=== PATIENT | female | born 1985 ===

== ENCOUNTER 2017-05-05 12:25 | Emergency (ER) | payer SELFPAY ==
[2017-05-05 12:47] VITALS: BP 116/73
--- NOTE | 2017-05-05 13:03 | UC ---
Abdominal Pain Female HPI - HPI Summary HPI Summary: couple days of nausea, vomiting, no fever or diarrhea, menses is late - History of Current Complaint Chief Complaint: UCGeneralIllness Stated Complaint: VOMITTING Time Seen by Provider: 05/05/17 12:45 Hx Obtained From: Patient Hx Last Menstrual Period: 04/07/17 ?: No Onset/Duration: Sudden Onset, Lasting Days - 3-4 days, Still Present Severity Initially: Moderate Severity Currently: None Location: Diffuse Radiates: No Character: Cramping Aggravating Factor(s): Food Alleviating Factor(s): Nothing Associated Signs and Symptoms: Positive: Nausea, Vomiting Allergies/Adverse Reactions: Allergies Allergy/AdvReac Type Severity Reaction Status Date / Time No Known Allergies Allergy Verified 05/05/17 12:47 Home Medications: Home Medications NK [No Home Medications Reported] 05/05/17 [History Confirmed 05/05/17] PMH/Surg Hx/FS Hx/Imm Hx Previously Healthy: Yes - Surgical History Surgical History: Yes Surgery Procedure, Year, and Place: Tonsilectomy - Family History Known Family History: Positive: None Family History: no cardiovascular issues in family lineage - Social History Occupation: Employed Full-time Lives: With Family Alcohol Use: Rare Substance Use Type: None Smoking Status (MU): Never Smoked Tobacco Review of Systems Constitutional: Negative Skin: Negative Eyes: Negative ENT: Negative Respiratory: Negative Cardiovascular: Negative Gastrointestinal: Negative, Abdominal Pain, Vomiting, Nausea Genitourinary: Negative Motor: Negative Neurovascular: Negative Musculoskeletal: Negative Neurological: Negative Psychological: Negative All Other Systems Reviewed And Are Negative: Yes Physical Exam Triage Information Reviewed: Yes Appearance: Well-Appearing, No Pain Distress, Well-Nourished Vital Signs: Initial Vital Signs Temp 99.0 F 05/05/17 12:43 Pulse 64 05/05/17 12:43 Resp 16 05/05/17 12:43 BP 116/73 05/05/17 12:43 Pulse Ox 100 05/05/17 12:43 Vital Signs Reviewed: Yes Eye Exam: Normal Eyes: Positive: Conjunctiva Clear ENT Exam: Normal ENT: Positive: Normal ENT inspection, Hearing grossly normal. Negative: Nasal congestion, Nasal drainage, Trismus, Muffled/hoarse voice Dental Exam: Normal Neck exam: Normal Neck: Positive: Supple, Nontender Respiratory Exam: Normal Respiratory: Positive: Chest non-tender, Lungs clear, No accessory muscle use Cardiovascular Exam: Normal Cardiovascular: Positive: RRR, Pulses Normal, Brisk Capillary Refill Abdominal Exam: Normal Abdomen Description: Positive: Nontender, No Organomegaly, Soft Bowel Sounds: Positive: Present Musculoskeletal Exam: Normal Musculoskeletal: Positive: Strength Intact, ROM Intact, No Edema Neurological Exam: Normal Neurological: Positive: Alert, Muscle Tone Normal Psychological Exam: Normal Skin Exam: Normal Diagnostics - Laboratory Diagnostic Studies Completed/Ordered: urine preg (+) Abd Pain Female Course/Dx - Course Course Of Treatment[facility], clear liquids and crackers in am to help manage nausea - Differential Dx/Diagnosis Differential Diagnosis: Appendicitis, Diverticulitis, Gall Bladder Disease, Provider Diagnoses: Discharge - Discharge Plan Condition: Stable Disposition: HOME Patient Education Materials: Acute Nausea and Vomiting (ED) Forms: *Work Release Referrals: Orlando Saab MD [Primary Care Provider] - Additional Instructions: [facility] [phone]
== END 2017-05-05 13:10 | disposition home or self-care (01) ==
LOC: UCEAST 12:25
DX: Z32.01 Encounter for pregnancy test, result positive (principal)
CPT/HCPCS: 84702; 99201; G0463